=== PATIENT | male | born 1995 | race African-American/Black ===

== ENCOUNTER 2018-01-11 21:37 | Emergency (ER) | payer BC, MEDICAID, OTHER ==
[~2018-01-11] VITALS: Ht 180.3 cm; Wt 65.5 kg
[2018-01-11] MEDS ORDERED: SODIUM CHLORIDE 0.9% 1,000ML IVBOLUS ONE (22:30)
[2018-01-11] MEDS ORDERED: SODIUM CHLORIDE FLUSH 10ML SYR IVF ONE (22:30)
[2018-01-11] MEDS ORDERED: KETOROLAC 30 MG/1 ML IVPush ONE (22:30)
[2018-01-11] MEDS ORDERED: ACETAMINOPHEN 500 MG TABLET PO ONE (22:30)
[2018-01-11] MEDS ORDERED: METOCLOPRAMIDE 5 MG/ML, 2ML IVPush ONE (22:30)
[2018-01-11] MEDS ORDERED: KETOROLAC 30 MG/1 ML ONE (22:36)
[2018-01-11] MEDS ORDERED: ACETAMINOPHEN 500 MG TABLET ONE (22:36)
[2018-01-11] MEDS ORDERED: METOCLOPRAMIDE 5 MG/ML, 2ML ONE (22:36)
[2018-01-11 22:52] LABS: RAPID INFLUENZA A Negative (Negative); RAPID INFLUENZA B Negative (Negative)
[2018-01-11 22:54] LABS: BASOPHILS % (AUTO) 0 % (0-1); EOSINOPHILS % (AUTO) 0 % (1-7); LYMPHOCYTES # (AUTO) 1.01 x10^3/uL (1-3.4); LYMPHOCYTES % (AUTO) 25 % (22-44); MD NO; MEAN CORPUSCULAR HEMOGLOBIN 29.6 pg (27.5-34.5); MEAN CORPUSCULAR HGB CONC 33.1 g/dL (33.2-36.2); MEAN CORPUSCULAR VOLUME 89.5 fL (81-97); MEAN PLATELET VOLUME 7.9 fL (7.4-10.4); MONOCYTES # (AUTO) 0.15 x10^3/uL (0.2-0.8); MONOCYTES % (AUTO) 4 % (2-9); NEUTROPHILS # (AUTO) 2.93 x10^3/uL (1.8-6.8); NEUTROPHILS % (AUTO) 72 % (42-75); PLATELET COUNT 204 x10^3/uL (130-400); RED BLOOD COUNT 4.47 x10^6/uL (4.38-5.82)
[2018-01-11 23:07] LABS: ALBUMIN 4.1 g/dL (3.4-5.0); ANION GAP 8 mmol/L (5-15); CALCIUM 8.3 mg/dL (8.5-10.1); CHLORIDE 105 mmol/L (98-107)
[2018-01-11 23:11] LABS: ALANINE AMINOTRANSFERASE 21 U/L (12-78); ALKALINE PHOSPHATASE 82 U/L (45-117); CREATININE 1.08 mg/dL (0.7-1.3)
[2018-01-12 00:52] VITALS: BP 138/76
== END 2018-01-12 00:55 | disposition home or self-care (01) ==
LOC: ED 01-12 00:49
DX: B34.9 Viral infection, unspecified (principal); Z21 Asymptomatic human immunodeficiency virus [HIV] infection status
CPT/HCPCS: 36415; 71046; 80053; 83605; 84145; 85025; 86701; 86702; 87040; 87081; 87400; 87806; 87880; 96361; 96374; 96375; 99285; J1885; J2765; J7030; 87535; G0475